=== PATIENT | male | born 1935 | race Caucasian/White ===

== ENCOUNTER 2019-09-04 11:59 | Emergency (ER) | payer OTHER ==
[~2019-09-04] VITALS: Ht 165.1 cm; Wt 68.5 kg
[2019-09-04 12:05] VITALS: Ht 165.1 cm; Wt 68.5 kg
[2019-09-04 13:15] LABS: BASOPHIL % 0.2 % (0-2); PLATELET COUNT 485 x10^3mcL (130-400); RED CELL DISTRIBUTION WIDTH 14.6 % (11.5-14.5)
[2019-09-04 13:40] LABS: microscopic required? YES; urine erythrocyte 1+ (NEGATIVE)
[2019-09-04 14:28] LABS: CARBON DIOXIDE 24.5 mmol/L (21-32); CHLORIDE SERUM 100 mmol/L (98-107); CREATININE SERUM 1.8 mg/dL (0.7-1.3); GLUCOSE SERUM 99 mg/dL (74-106); POTASSIUM SERUM 4.2 mmol/L (3.5-5.1); SODIUM SERUM 137 mmol/L (136-145)
[2019-09-04 14:32] LABS: ALBUMIN 3.2 g/dL (3.4-5.0)
[2019-09-04 14:33] LABS: ALKALINE PHOSPHATASE 62 U/L (46-116); ALT/SGPT 44 U/L (16-63); AST/SGOT 36 U/L (15-37); BILIRUBIN TOTAL 0.5 mg/dL (0.20-1.00); TOTAL PROTEIN, SERUM 8.4 g/dL (6.4-8.2)
[2019-09-04 14:49] VITALS: BP 159/66
== END 2019-09-04 14:49 | disposition home or self-care (01) ==
LOC: ED 11:59
PROVIDERS: Emergency Medicine
DX: N39.0 Urinary tract infection, site not specified (principal); R44.3 Hallucinations, unspecified; I10 Essential (primary) hypertension
CPT/HCPCS: J0696; J7030; J7060; Q0092